=== PATIENT | male | born 2000 | race Caucasian/White ===

== ENCOUNTER 2020-08-29 14:38 | Emergency (ER) | payer OTHER ==
[2020-08-29 14:49] VITALS: BP 168/97; PULSE 58; BMI 31.8
== END 2020-08-29 17:19 | disposition home or self-care (01) ==
LOC: JER 14:38
DX: S06.0X0A Concussion without loss of consciousness, initial encounter (principal); S09.90XA Unspecified injury of head, initial encounter
CPT/HCPCS: 70450-TC; 99284-25